=== PATIENT | female | born 1990 | race African-American/Black ===

== ENCOUNTER 2022-01-26 22:36 | Emergency (ER) | payer SELFPAY ==
[~2022-01-26] VITALS: Ht 177.8 cm; Wt 171.2 kg
[2022-01-27] MEDS ORDERED: IBUPROFEN 600MG TABLET PO ONE (00:45)
[2022-01-27] MEDS ORDERED: ACETAMINOPHEN 325MG TABLET PO PRN (00:45)
[2022-01-27 01:39] LABS: BASOPHILS % 0.4 % (0.0-2.0); EOSINOPHILS % 0.5 % (0.0-5.0); HEMATOCRIT. 35.8 % (36.0-48.0); HEMOGLOBIN. 11.5 g/dL (12.0-16.0); LYMPHOCYTES % 34.2 % (20.0-50.0); MEAN CORPUSCULAR VOLUME 77.9 fL (81.0-99.0); MEAN PLATELET VOLUME 8.5 fl (7.4-10.4); MONOCYTES % 8.6 % (2.0-8.0); NEUTROPHILS % 56.3 % (40.0-76.0); PLATELET 224 x1000/uL (130-400); RED CELL DISTRIBUTION WIDTH 17.1 % (11.6-14.6)
[2022-01-27 01:43] LABS: CHLORIDE 109 mEq/L (98-107)
[2022-01-27 01:47] LABS: CLARITY URINE CLOUDY (CLEAR); COLOR URINE ORANGE (YELLOW); KETONES URINE TRACE (NEGATIVE); LEUKOCYTE ESTERASE URINE TRACE (NEGATIVE); NITRITE URINE NEGATIVE (NEGATIVE); OCCULT BLOOD URINE 3+ (NEGATIVE); PH URINE 5.5 (4.5-8.0); PROTEIN URINE 1+ (NEGATIVE); SPECIFIC GRAVITY URINE 1.026 (1.005-1.030)
[2022-01-27 01:49] LABS: HCG SCREEN NEGATIVE
[2022-01-27 02:04] LABS: B-HCG QUANTITATIVE < 1 mIU/mL (<3)
[2022-01-27] MEDS ORDERED: IBUPROFEN 600MG TABLET PO NR (02:30)
[2022-01-27] MEDS ORDERED: IBUP-2028 MT (03:22)
[2022-01-27 03:45] VITALS: BP 150/80
== END 2022-01-27 03:58 | disposition home or self-care (01) ==
LOC: ER 22:36
DX: N93.8 Other specified abnormal uterine and vaginal bleeding (principal)
CPT/HCPCS: 36415; 76830; 76856; 80053; 81003; 81025; 84702; 84703; 85025; 86850; 86900; 93005; 99285

== ENCOUNTER 2024-05-05 16:30 | Emergency (ER) | payer MEDICAID ==
[~2024-05-05] VITALS: Ht 177.8 cm; Wt 135.0 kg
[~2024-05-05 16:30] MED LIST: IBUP-2028 MT
[2024-05-05 16:38] VITALS: O2SAT 97
[2024-05-05] MEDS: METOCLOPRAMIDE HCL 10MG/2ML VIAL IM ONE (19:32)
[2024-05-05] MEDS: KETOROLAC 30MG/ML VIAL IM ONE (19:58)
[2024-05-05 20:54] VITALS: BP 126/78; PULSE 85; RESP 18; TEMP 36.94740; O2SAT 100
[2024-05-05] MEDS ORDERED: ASPI1TAB8 PO (20:58)
== END 2024-05-05 21:00 | disposition home or self-care (01) ==
LOC: ER 16:30
DX: G43.909 Migraine, unspecified, not intractable, without status migrainosus (principal)
CPT/HCPCS: 81025; 96372; 99284; J1885; J2765; Z7610

== ENCOUNTER 2025-04-06 14:21 | Emergency (ER) | payer MEDICAID ==
[~2025-04-06] VITALS: Ht 177.8 cm; Wt 144.0 kg
[~2025-04-06 14:21] MED LIST changes: +ASPI1TAB8 PO
[2025-04-06 14:57] VITALS: O2SAT 100
[2025-04-06 18:24] VITALS: BP 149/111; PULSE 76; RESP 16; TEMP 36.7; O2SAT 100
[2025-04-06] MEDS: ACETAMINOPHEN 325MG TABLET PO ONE (18:24)
[2025-04-06] MEDS: KETOROLAC 15MG/ML VIAL IM ONE (18:24)
== END 2025-04-06 18:26 | disposition home or self-care (01) ==
LOC: ER 14:21
DX: S83.91XA Sprain of unspecified site of right knee, initial encounter (principal); M25.561 Pain in right knee; Z55.6 Problems related to health literacy; Z75.3 Unavailability and inaccessibility of health-care facilities; Z79.82 Long term (current) use of aspirin; X58.XXXA Exposure to other specified factors, initial encounter; Y93.89 Activity, other specified; Y92.89 Other specified places as the place of occurrence of the external cause; Y99.8 Other external cause status
CPT/HCPCS: 99283; 73562; 96372; J1885